=== PATIENT | male | born 1950 | race Caucasian/White ===

== ENCOUNTER → 2016-11-08 | Outpatient (CLI) | payer OTHER ==
[~2016-11-08] MED LIST: GADOBUTROL 10 MMOL/10 ML VIAL ONE
== END | disposition home or self-care (01) ==
LOC: CFH 06:36
PROVIDERS: ATTEND Internal Medicine
DX: D18.03 Hemangioma of intra-abdominal structures (principal); K76.9 Liver disease, unspecified
CPT/HCPCS: 74183; 82565; A9585

== ENCOUNTER 2016-11-30 12:15 | Observation (INO) | payer OTHER ==
[~2016-11-30] VITALS: Ht 172.7 cm; Wt 82.0 kg
[~2016-11-30 12:15] MED LIST changes: +ALBUTEROL INH INH; +BUDE10.2 INH; -GADOBUTROL 10 MMOL/10 ML VIAL ONE; +WHEA1POW5 PO
[2016-11-30] MEDS ORDERED: LACTATED RINGERS 1,000 ML IV SCH ×2 (12:46→16:04)
[2016-11-30] MEDS ORDERED: BUPIVACAINE/PF-EPI 0.25% 1:200K ONE (13:39)
[2016-11-30] MEDS ORDERED: MIDAZOLAM 1 MG/ML, 2ML ONE (15:06)
[2016-11-30] MEDS ORDERED: FENTANYL PF 250 MCG/5ML ONE (15:06)
[2016-11-30] MEDS ORDERED: CEFAZOLIN 1,000 MG ONE (15:16)
[2016-11-30] MEDS ORDERED: ROCURONIUM 10 MG/ML ONE (15:16)
[2016-11-30] MEDS ORDERED: PROPOFOL 10 MG/ML, 20ML ONE (15:16)
[2016-11-30] MEDS ORDERED: ONDANSETRON 2MG/ML, 2ML ONE (15:16)
[2016-11-30] MEDS ORDERED: GLYCOPYRROLATE 0.2MG/1ML ONE (15:16)
[2016-11-30] MEDS ORDERED: DEXAMETHASONE 4 MG/ML, 1ML ONE (15:16)
[2016-11-30] MEDS ORDERED: SUCCINYLCHOLINE 20 MG/ML, 10ML ONE (15:16)
[2016-11-30] MEDS ORDERED: NEOSTIGMINE 1 MG/ML, 10ML ONE (15:16)
[2016-11-30] MEDS ORDERED: BUPIVACAINE/PF-EPI 0.25% 1:200K INFIL ONE (15:33)
[2016-11-30] MEDS ORDERED: HYDROmorphone 1 MG/ML, 1ML ONE (16:21)
[2016-11-30] MEDS ORDERED: MEPERIDINE/PF 25MG/0.5ML ONE (16:22)
[2016-11-30] MEDS: HYDROmorphone 1 MG/ML, 1ML IV PRN ×2 (16:25→16:35)
[2016-11-30] MEDS ORDERED: MEPERIDINE/PF 25MG/0.5ML IVPush PRN (16:30)
[2016-11-30] MEDS ORDERED: FENTANYL PF 100 MCG/2ML IV PRN (16:30)
[2016-11-30] MEDS ORDERED: METOCLOPRAMIDE 5 MG/ML, 2ML IV PRN (16:30)
[2016-11-30] MEDS ORDERED: OXYcodone 5 MG/5 ML ORAL.SOL UDC PO PRN (16:30)
[2016-11-30] MEDS ORDERED: ACETAMINOPHEN 325 MG TABLET PO PRN (16:30)
[2016-11-30] MEDS ORDERED: LABETALOL 5MG/ML, 20ML IV PRN (16:30)
[2016-11-30] MEDS ORDERED: hydrALAzine 20 MG/ML, 1ML IV PRN (16:30)
[2016-11-30] MEDS ORDERED: DIPHENHYDRAMINE 50 MG/ML, 1ML IVPush PRN (16:30)
[2016-11-30] MEDS ORDERED: ONDANSETRON 2MG/ML, 2ML IVPush PRN ×2 (16:30)
[2016-11-30] MEDS ORDERED: FENTANYL PF 100 MCG/2ML ONE (16:41)
[2016-11-30] MEDS ORDERED: ACETAMINOPHEN 650 MG/20.3 ML UDC ONE (16:41)
[2016-11-30 19:24] VITALS: BP 130/74
[2016-11-30] MEDS ORDERED: TRAM50TA2 PO (20:21)
[2016-11-30] MEDS ORDERED: DOCU-30 PO (20:26)
== END 2016-11-30 22:45 | disposition home or self-care (01) ==
LOC: OUT 12:15 → ORIP 17:15 → 4NOR 17:24
PROVIDERS: ADMIT Surgery; ATTEND Surgery
DX: K40.90 Unilateral inguinal hernia, without obstruction or gangrene, not specified as recurrent (principal); F17.200 Nicotine dependence, unspecified, uncomplicated
CPT/HCPCS: 49650; 93005; C1781; G0378; J0330; J0690; J1100; J1170; J2175; J2250; J2405; J2704; J2710; J3010; J7120; S2900; J3490

== ENCOUNTER → 2018-04-10 | Outpatient (CLI) | payer OTHER ==
[~2018-04-10] MED LIST changes: +DOCU-131 PO; +TRAM50TA2 PO
== END | disposition home or self-care (01) ==
LOC: CFH 08:43
PROVIDERS: ATTEND Internal Medicine Cardiovascular Disease
DX: R00.2 Palpitations (principal); R00.1 Bradycardia, unspecified; Z72.0 Tobacco use
CPT/HCPCS: 93306

== ENCOUNTER 2018-11-26 07:34 | Outpatient (CLI) | payer OTHER | END 2018-11-26 23:59 | disposition home or self-care (01) | LOC: CFH 07:34 | PROVIDERS: ATTEND Nurse Practitioner | DX: J44.9 Chronic obstructive pulmonary disease, unspecified (principal) | CPT/HCPCS: 71250 ==

== ENCOUNTER → 2019-11-26 | Outpatient (CLI) | payer OTHER | END | disposition home or self-care (01) | LOC: CFH 10:26 | PROVIDERS: ATTEND Internal Medicine | DX: Z12.2 Encounter for screening for malignant neoplasm of respiratory organs (principal); R91.8 Other nonspecific abnormal finding of lung field; F17.211 Nicotine dependence, cigarettes, in remission | CPT/HCPCS: G0297 ==

== ENCOUNTER → 2020-11-16 | Outpatient (CLI) | payer OTHER | END | disposition home or self-care (01) | LOC: CFH 12:53 | PROVIDERS: ATTEND Internal Medicine | DX: Z12.2 Encounter for screening for malignant neoplasm of respiratory organs (principal); R91.8 Other nonspecific abnormal finding of lung field; F17.211 Nicotine dependence, cigarettes, in remission | CPT/HCPCS: 71271 ==